=== PATIENT | male | born 1945 | race Caucasian/White ===

== ENCOUNTER → 2017-08-17 | Outpatient (CLI) | payer BC ==
[~2017-08-17] MED LIST: CLC100 PO
--- NOTE | 2017-08-17 11:31 | DIAGNOSTIC IMAGING REPORT ---
R VENOUS DOPP LOWER EXT UNILAT HISTORY: 72 years-old Male RIGHT CALF PAIN acute right calf pain COMPARISON: None available TECHNIQUE: Multiple real-time sonographic images of the right lower extremity deep venous structures were obtained assessing grayscale appearance, color and spectral flow FINDINGS: Normal flow, compressibility, phasicity and augmentation of the right lower extremity deep venous structures. IMPRESSION: No sonographic evidence of deep venous thrombosis. The above report was generated using voice recognition software. It may contain grammatical, syntax or spelling errors. Electronically signed by: Koby Butterfield M.D. 08/17/2017 11:30 AM Dictated Date/Time: 08/17/2017 11:29 AM
== END | disposition home or self-care (01) ==
LOC: C.ULTR 11:00
PROVIDERS: ATTEND Family Medicine
DX: M79.661 Pain in right lower leg (principal)